=== PATIENT | female | born 1975 | race American Indian/Alaskan Native ===

== ENCOUNTER 2016-12-25 23:51 | Observation (INO) | payer MEDICAID ==
[2016-12-25 23:51] VITALS: BMI 29.5
[2016-12-26 00:02] VITALS: O2SAT 98
[2016-12-26] MEDS ORDERED: Sodium Chloride 0.9% 1,000 ML IV STA (00:43)
[2016-12-26 01:16] LABS: BASO # 0.1 K/uL (0.0-0.2); BASO % 0.8 % (0.0-2.0); EOS # 0.3 K/uL (0.0-0.7); EOS % 4.1 % (0.0-4.0); HEMATOCRIT 32.3 % (34.0-47.0); LYMPH # 1.8 K/uL (1.0-4.3); LYMPH % 24.9 % (20.0-40.0); MEAN CELL VOLUME 85.4 fl (81.0-99.0); MEAN CORPUSCULAR HEMOGLOBIN 28.1 pg (27.0-31.0); MEAN CORPUSCULAR HGB CONC 32.9 g/dL (33.0-37.0); MEAN PLATELET VOLUME 8.1 fl (7.2-11.7); MONO # 0.6 K/uL (0.0-0.8); MONO % 8.2 % (0.0-10.0); NEUT # 4.6 K/uL (1.8-7.0); RED CELL DISTRIBUTION WIDTH 14.5 % (11.5-14.5); WHITE BLOOD COUNT 7.4 K/uL (4.8-10.8)
[2016-12-26 01:31] LABS: BLOOD UREA NITROGEN 14 mg/dl (7-17); CALCIUM 9.4 mg/dL (8.4-10.2); CARBON DIOXIDE 23 mmol/L (22-30); CHLORIDE 108 mmol/L (98-107); GFR AFRICAN-AMERICAN > 60; GLUCOSE,RANDOM 101 mg/dL (65-105); POTASSIUM 3.9 MMOL/L (3.6-5.0); SODIUM 142 mmol/l (132-148)
--- NOTE | 2016-12-26 01:38 | ED PDOC ---
HPI: General Adult Time Seen by Provider: 12/26/16 00:35 Chief Complaint (Nursing): Flu-like Symptoms Chief Complaint (Provider): body aches, chills, weakness, productive cough History Per: Patient History/Exam Limitations: no limitations Onset/Duration Of Symptoms: Days Have you had recent travel within the past 21 days to any of the following countries: [place], [place], [place] or [place]?: No Current Symptoms Are (Timing): Still Present Additional Complaint(s): 41yo female with PMHx including fibromyalgia presents to the ED with c/o productive cough, body aches, chills, weakness x 3 days. Patient reports being unable to take meds. Denies fever today, but had fever at home. No sick contacts or recent travel. Past Medical History Reviewed: Historical Data, Nursing Documentation, Vital Signs Vital Signs: Last Vital Signs Temp 97.9 F 12/26/16 03:29 Pulse 79 12/26/16 03:29 Resp 17 12/26/16 03:29 BP 128/82 12/26/16 03:29 Pulse Ox 98 12/26/16 03:59 - Medical History PMH: Asthma, Back Problems, Fibromyalgia Denies: Atrial Fibrillation, CAD, Chronic Kidney Disease - Surgical History Surgical History: (x 3) - Family History Family History: States: No Known Family Hx - Immunization History Hx Tetanus Toxoid Vaccination: No Hx Influenza Vaccination: No Hx Pneumococcal Vaccination: No - Home Medications Home Medications: Ambulatory Orders Medication Instructions Recorded Albuterol 0.083% [Albuterol 3 ml IH Q4 PRN 09/20/15 Sulfate 3 Ml] Fluticasone Nasal [Flonase] 2 spr NS DAILY 09/20/15 Gabapentin [Neurontin] 300 mg PO TID 09/20/15 Hydroxychloroquine Sulfate 200 mg PO BID 09/20/15 [Plaquenil] Meloxicam [Mobic] 15 mg PO DAILY 09/20/15 Methocarbamol [Robaxin] 500 mg PO TID #20 tab 10/19/15 oxyCODONE/Acetaminophen [Percocet 1 ea PO Q6H PRN #8 tab 07/28/16 5/325 mg Tab] - Allergies Allergies/Adverse Reactions: Allergies Allergy/AdvReac Type Severity Reaction Status Date / Time cat dander Allergy ITCHING Verified 12/25/16 23:59 Review of Systems ROS Statement: Except As Marked, All Systems Reviewed And Found Negative Constitutional: Positive for: Chills, Weakness, Other (body aches, no sick contacts or recent travel ). Negative for: Fever Respiratory: Positive for: Cough Physical Exam - Reviewed Nursing Documentation Reviewed: Yes Vital Signs Reviewed: Yes - Physical Exam Appears: Positive for: Well, No Acute Distress (tired appearing ) Head Exam: Positive for: ATRAUMATIC, NORMAL INSPECTION, NORMOCEPHALIC Skin: Positive for: Warm, Dry, Pallor Eye Exam: Positive for: Normal appearance, EOMI, PERRL ENT: Positive for: Normal ENT Inspection Neck: Positive for: Normal, Painless ROM, Supple Cardiovascular/Chest: Positive for: Regular Rate, Rhythm. Negative for: Murmur , Tachycardia Respiratory: Positive for: Normal Breath Sounds. Negative for: Wheezing, Respiratory Distress Gastrointestinal/Abdominal: Positive for: Normal Exam, Bowel Sounds, Soft. Negative for: Tenderness Back: Positive for: Normal Inspection. Negative for: L CVA Tenderness, R CVA Tenderness Extremity: Positive for: Normal ROM. Negative for: Deformity, Swelling Neurologic/Psych: Positive for: Alert, Oriented. Negative for: Motor/Sensory Deficits - Laboratory Results Result Diagrams: 12/26/16 01:00 12/26/16 01:00 - ECG O2 Sat by Pulse Oximetry: 98 Pulse Ox Interpretation: Normal (RA) Medical Decision Making Medical Decision Makin: Impression: URI vs. influenza vs. influenza-like illness Plan: Labs IVF, Reglan 10mg IVP, Toradol 15mg IVP, Ultram 50mg PO CXR reassess 0555: Patient feeling better and will d/c at this time. Scribe Attestation: Documented by Leydi Duran acting as a scribe for Brad Crump MD. Provider Scribe Attestation: All medical record entries made by the Scribe were at my direction and personally dictated by me. I have reviewed the chart and agree that the record accurately reflects my personal performance of the history, physical exam, medical decision making, and the department course for this patient. I have also personally directed, reviewed, and agree with the discharge instructions and disposition. ED OBSERVATION Date of observation admission: 12/26/16 Time of observation admission: 03:58 - Observation admission statement Patient is being placed in observation because:: flu-like illness - Goals of Observation Goals of observation are:: pending discharge in AM Disposition - Clinical Impression Clinical Impression: Influenza-like symptoms, Upper respiratory infection - Patient ED Disposition Is Patient to be Admitted: No - Disposition Disposition: Routine/Home Disposition Time: 05:55 Condition: IMPROVED
[2016-12-26 03:29] VITALS: BP 128/82; PULSE 79; RESP 17; TEMP 97.9
[2016-12-26 03:37] LABS: RBC URINE 4 /hpf (0-3); URINE BACTERIA RARE (<OCC); URINE BILIRUBIN NEGATIVE (NEGATIVE); URINE BLOOD NEGATIVE (NEGATIVE); URINE COLOR YELLOW (YELLOW); URINE GLUCOSE (UA) NEG (Normal); URINE KETONE NEGATIVE (NEGATIVE); URINE LEUKOCYTE ESTERASE NEG Leu/uL (Negative); URINE PROTEIN 30 mg/dL (NEGATIVE); URINE UROBILINOGEN 0.2-1.0 mg/dL (0.2-1.0); WBC URINE 1 /hpf (0-5)
--- NOTE | 2016-12-26 13:38 | RAD ---
HISTORY: r/o pna COMPARISON: Comparison chest dated 08/21/2010 FINDINGS: LUNGS: Poor inspiration with low lung volumes and mild crowded bronchovascular markings both lung bases PLEURA: No significant pleural effusion identified, no pneumothorax apparent. CARDIOVASCULAR: Normal. OSSEOUS STRUCTURES: No significant abnormalities. VISUALIZED UPPER ABDOMEN: Normal. OTHER FINDINGS: None. IMPRESSION: Poor inspiration with low lung volumes with mild crowded bronchovascular markings both lung bases
== END 2016-12-26 05:47 | disposition home or self-care (01) ==
LOC: H.ER 23:51 → H.EROBSV 12-26 03:58
PROVIDERS: ADMIT Emergency Medicine; ATTEND Emergency Medicine
DX: J06.9 Acute upper respiratory infection, unspecified (principal); J45.909 Unspecified asthma, uncomplicated; M79.7 Fibromyalgia; Z79.899 Other long term (current) drug therapy

== ENCOUNTER 2018-01-07 21:34 | Emergency (ER) | payer MEDICAID ==
[2018-01-07 21:35] VITALS: BMI 29.5
[2018-01-07 21:43] VITALS: O2SAT 100
[2018-01-07] MEDS ORDERED: DiphenhydrAMINE 50 mg/ml Inj IVP STA (22:19)
[2018-01-07] MEDS ORDERED: Sodium Chloride 0.9% 1,000 ML IV STA (22:20)
[2018-01-07] MEDS ORDERED: Promethazine 25 MG in Sodium Chloride 0.9% 50 ML IV STA (22:23)
--- NOTE | 2018-01-07 22:45 | ED PDOC ---
HPI: General Adult Time Seen by Provider: 01/07/18 21:48 Chief Complaint (Nursing): Abdominal Pain Chief Complaint (Provider): Fever, cough, abdominal pain History Per: Patient History/Exam Limitations: no limitations Onset/Duration Of Symptoms: Days (x2 weeks) Current Symptoms Are (Timing): Still Present Additional Complaint(s): Leana Matamoros is a 42 year old female, with a past medical history of lupus and asthma, who presents to the emergency department complaining of non productive cough onset for x2 weeks associated with chest tightness, fever, chills and nausea onset for x2 days. Patient reports x1 week ago she developed some left flank pain that radiates to her LLQ. She is also complaining of diffused body aches, and muscle stiffness associated with migraine headache. 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 She denies any rhinorrhea, urinary symptoms and vomiting. No further medical complaints. PMD: Dr. De Los Santos Past Medical History Reviewed: Historical Data, Nursing Documentation, Vital Signs Vital Signs: Last Vital Signs Temp 98.3 F 01/08/18 04:39 Pulse 74 01/08/18 04:39 Resp 18 01/08/18 04:39 BP 130/84 01/08/18 04:39 Pulse Ox 100 01/08/18 04:52 - Medical History PMH: Asthma, Back Problems, Fibromyalgia Denies: Atrial Fibrillation, CAD, Chronic Kidney Disease Other PMH: Lupus - Surgical History Surgical History: (x 3) - Family History Family History: States: Hypertension - Social History Current smoker - smoking cessation education provided: No - Immunization History Hx Tetanus Toxoid Vaccination: No Hx Influenza Vaccination: No Hx Pneumococcal Vaccination: No - Home Medications Home Medications: Ambulatory Orders Medication Instructions Recorded Albuterol 0.083% [Albuterol 3 ml IH Q4 PRN 09/20/15 Sulfate 3 Ml] Fluticasone Nasal [Flonase] 2 spr NS DAILY 09/20/15 Gabapentin [Neurontin] 300 mg PO TID 09/20/15 Hydroxychloroquine Sulfate 200 mg PO BID 09/20/15 [Plaquenil] Meloxicam [Mobic] 15 mg PO DAILY 09/20/15 Methocarbamol [Robaxin] 500 mg PO TID #20 tab 10/19/15 oxyCODONE/Acetaminophen [Percocet 1 ea PO Q6H PRN #8 tab 07/28/16 5/325 mg Tab] Azithromycin [Z-Osito] 250 mg PO DAILY #6 tab 01/08/18 Ibuprofen [Motrin Tab] 600 mg PO Q6 #30 tab 01/08/18 Acetaminophen [Acetaminophen Extra 2 tab PO Q6 PRN #24 tablet 01/10/18 Strength] Ibuprofen [Motrin] 600 mg PO Q8 PRN #21 tab 01/10/18 Oseltamivir [Tamiflu] 75 mg PO BID #9 cap 01/10/18 - Allergies Allergies/Adverse Reactions: Allergies Allergy/AdvReac Type Severity Reaction Status Date / Time cat dander Allergy ITCHING Verified 12/25/16 23:59 Review of Systems ROS Statement: Except As Marked, All Systems Reviewed And Found Negative (and as per HPI) Constitutional: Positive for: Fever, Chills, Other (diffused body aches, muscle stiffness) ENT: Negative for: Nose Discharge (rhinorrhea) Cardiovascular: Positive for: Chest Pain (tightness) Respiratory: Positive for: Cough Gastrointestinal: Positive for: Nausea, Abdominal Pain (LLQ). Negative for: Vomiting Genitourinary Female: Negative for: Dysuria, Frequency, Incontinence, Hematuria Musculoskeletal: Positive for: Back Pain (left flank radiates to LLQ) Neurological: Positive for: Headache (migraine) Physical Exam - Reviewed Nursing Documentation Reviewed: Yes Vital Signs Reviewed: Yes - Physical Exam Appears: Positive for: In Acute Distress (mild painful ). Negative for: Well ( tired appearing, febrile) Head Exam: Positive for: ATRAUMATIC, NORMAL INSPECTION, NORMOCEPHALIC Skin: Positive for: Normal Color, Warm, Dry Eye Exam: Positive for: Normal appearance ENT: Positive for: Other (tacky mucous membrane). Negative for: Pharyngeal Erythema, Tonsillar Exudate, Tonsillar Swelling Neck: Positive for: Painless ROM Cardiovascular/Chest: Positive for: Regular Rate, Rhythm. Negative for: Murmur Respiratory: Positive for: Wheezing (diffused and expiratory ). Negative for: Accessory Muscle Use, Respiratory Distress Gastrointestinal/Abdominal: Positive for: Soft. Negative for: Tenderness, Mass , Distended, Guarding, Rebound Back: Positive for: L CVA Tenderness, R CVA Tenderness. Negative for: Vertebral Tenderness Extremity: Positive for: Normal ROM. Negative for: Deformity, Swelling Lymphatic: Negative for: Adenopathy Neurologic/Psych: Positive for: Alert, Oriented. Negative for: Motor/Sensory Deficits - Laboratory Results Result Diagrams: 01/07/18 23:18 01/07/18 23:18 - ECG O2 Sat by Pulse Oximetry: 100 (RA) Pulse Ox Interpretation: Normal Medical Decision Making Medical Decision Making: Initial Impression: Febrile illness. Differential includes but not limited to viral syndrome, pyelonephritis, sepsis, lupus exacerbation, PNA, influenza. Initial Plan: --VBG --Abd & Pelvis w/o PO or IV Contrast [CT] --B-Type natriuretic peptide --CMP --Urine --Urine dipstick --CBC w/ differential --PTT --PT --Chest two views (PA/LAT) [RAD] --Benadryl 25 mg IVP --Sodium Chloride 1,000 ml IV 100 mls/hr --Phenergan Inj 25 mg Sodium Chloride 0.9% 50 ml IV --Toradol 15 mg IVP --Tylenol 325mg tab 975 mg PO --Blood culture --Urine culture --Influenza A B --Urinalysis --Reevaluation Scribe Attestation: Documented by Jason Alonso, acting as a scribe for Nickie Morton MD Provider Scribe Attestation: All medical record entries made by the Scribe were at my direction and personally dictated by me. I have reviewed the chart and agree that the record accurately reflects my personal performance of the history, physical exam, medical decision making, and the department course for this patient. I have also personally directed, reviewed, and agree with the discharge instructions and disposition. Disposition - Clinical Impression Clinical Impression: Cough, Fever - Patient ED Disposition Is Patient to be Admitted: Transfer of Care - Disposition Referrals: Mary De Los Santos [Medical Doctor] - Disposition: Transfer of Care Disposition Time: 00:00 Condition: STABLE Prescriptions: Azithromycin [Z-Osito] 250 mg PO DAILY #6 tab Ibuprofen [Motrin Tab] 600 mg PO Q6 #30 tab Patient Signed Over To: Brad Crump Handoff Comments: Pending ER workup reassessment and final ER disposition
[2018-01-07 23:23] LABS: BASO # 0.1 K/uL (0.0-0.2); BASO % 1.3 % (0.0-2.0); EOS # 0.1 K/uL (0.0-0.7); EOS % 1.8 % (0.0-4.0); HEMOGLOBIN 9.1 g/dL (12.0-16.0); LYMPH # 0.8 K/uL (1.0-4.3); LYMPH % 17.1 % (20.0-40.0); MEAN CELL VOLUME 80.5 fl (81.0-99.0); MEAN CORPUSCULAR HEMOGLOBIN 26.2 pg (27.0-31.0); MEAN CORPUSCULAR HGB CONC 32.6 g/dL (33.0-37.0); MEAN PLATELET VOLUME 7.5 fl (7.2-11.7); MONO # 0.4 K/uL (0.0-0.8); MONO % 7.6 % (0.0-10.0); NEUT # 3.4 K/uL (1.8-7.0); NEUT % 72.2 % (50.0-75.0); RBC 3.47 Mil/uL (3.80-5.20); RED CELL DISTRIBUTION WIDTH 16.1 % (11.5-14.5); WHITE BLOOD COUNT 4.7 K/uL (4.8-10.8)
[2018-01-07 23:29] LABS: VENOUS BLOOD GAS BASE EXCESS -0.8 mmol/L (0.0-2.0); VENOUS BLOOD GAS PCO2 41 mmHg (40-60); VENOUS BLOOD GAS PO2 27 mm/Hg (30-55); VENOUS BLOOD PH 7.38 (7.32-7.43)
[2018-01-07 23:33] LABS: ALBUMIN 3.9 g/dL (3.5-5.0); ALT/SGPT 44 U/L (9-52); AST/SGOT 31 U/L (14-36); BLOOD UREA NITROGEN 10 mg/dl (7-17); GFR AFRICAN-AMERICAN > 60; GFR NON-AFRICAN AMERICAN > 60; INR 1.1 (0.9-1.2); PARTIAL THROMBOPLASTIN TIME 27.8 Seconds (25.6-37.1)
[2018-01-07 23:47] LABS: B-TYPE NATRIURETIC PEPTIDE 73.3 pg/ml (0-450)
[2018-01-08] MEDS ORDERED: DiphenhydrAMINE 50 mg/ml Inj ONE (00:03)
[2018-01-08 02:08] LABS: SQUAMOUS EPITHIAL 2 /hpf (0-5); URINE BACTERIA RARE (<OCC); URINE BILIRUBIN NEGATIVE (NEGATIVE); URINE BLOOD NEGATIVE (NEGATIVE); URINE CLARITY SLIGHTY-CLOUDY (Clear); URINE COLOR YELLOW (YELLOW); URINE GLUCOSE (UA) NEG (Normal); URINE LEUKOCYTE ESTERASE NEG Leu/uL (Negative); URINE PROTEIN NEGATIVE (NEGATIVE); URINE UROBILINOGEN 0.2-1.0 mg/dL (0.2-1.0)
--- NOTE | 2018-01-08 03:56 | CT ---
EXAM: CT Abdomen and Pelvis Without Intravenous Contrast CLINICAL HISTORY: 42 years old, female; Pain; Abdominal pain; Flank; Left; Additional info: Left flank pain TECHNIQUE: Axial computed tomography images of the abdomen and pelvis without intravenous contrast. All CT scans at this facility use one or more dose reduction techniques, viz.: automated exposure control; ma/kV adjustment per patient size (including targeted exams where dose is matched to indication; i.e. head); or iterative reconstruction technique. Coronal and sagittal reformatted images were created and reviewed. COMPARISON: US - PELVIS ULTRASOUND 2016-01-24 10:48 FINDINGS: Lung bases: Unremarkable. No mass. No consolidation. ABDOMEN: Liver: Unremarkable. Gallbladder and bile ducts: Unremarkable. No calcified stones. No ductal dilation. Pancreas: Unremarkable. No ductal dilation. Spleen: Unremarkable. No splenomegaly. Adrenals: Unremarkable. No mass. Kidneys and ureters: Unremarkable. No obstructing stones. No hydronephrosis. Stomach and bowel: Mildly distended gas filled loops of small bowel. No obstruction. No mucosal thickening. There is a moderate amount of stool mixed with gas throughout the colon. There is no wall thickening or pericolonic stranding to suggest colitis. Appendix: No findings to suggest acute appendicitis. Normal appendix. PELVIS: Bladder: Unremarkable. No stones. Reproductive: Unremarkable as visualized. ABDOMEN and PELVIS: Intraperitoneal space: Unremarkable. No free air. No significant fluid collection. Bones/joints: No acute fracture. No dislocation. Soft tissues: Unremarkable. Vasculature: Unremarkable. No abdominal aortic aneurysm. Lymph nodes: Unremarkable. No enlarged lymph nodes. IMPRESSION: No evidence of an acute intra-abdominal or pelvic abnormality. No nephrolithiasis or obstructive uropathy. No acute colitis.
--- NOTE | 2018-01-08 04:11 | ED PDOC ---
- Laboratory Results Result Diagrams: 01/07/18 23:18 01/07/18 23:18 - ECG O2 Sat by Pulse Oximetry: 100 (RA) Pulse Ox Interpretation: Normal Medical Decision Making Medical Decision Making: Time: Patient was signed out to me by Dr. Morton pending reevaluation. Time: 355 EXAM: CT Abdomen and Pelvis Without Intravenous Contrast FINDINGS: Lung bases: Unremarkable. No mass. No consolidation. ABDOMEN: Liver: Unremarkable. Gallbladder and bile ducts: Unremarkable. No calcified stones. No ductal dilation. Pancreas: Unremarkable. No ductal dilation. Spleen: Unremarkable. No splenomegaly. Adrenals: Unremarkable. No mass. Kidneys and ureters: Unremarkable. No obstructing stones. No hydronephrosis. Stomach and bowel: Mildly distended gas filled loops of small bowel. No obstruction. No mucosal thickening. There is a moderate amount of stool mixed with gas throughout the colon. There is no wall thickening or pericolonic stranding to suggest colitis. Appendix: No findings to suggest acute appendicitis. Normal appendix. PELVIS: Bladder: Unremarkable. No stones. Reproductive: Unremarkable as visualized. ABDOMEN and PELVIS: Intraperitoneal space: Unremarkable. No free air. No significant fluid collection. Bones/joints: No acute fracture. No dislocation. Soft tissues: Unremarkable. Vasculature: Unremarkable. No abdominal aortic aneurysm. Lymph nodes: Unremarkable. No enlarged lymph nodes. IMPRESSION: No evidence of an acute intra-abdominal or pelvic abnormality. No nephrolithiasis or obstructive uropathy. No acute colitis. Patients vital signs improved, patient feeling better, advised to followup with PMD in 1 - 2 days. Will prescribe azithromycin for possible bacterial infection given patient is on plaquenil. Return precautions given. Patient well appearing, ambulatory, tolerating PO upon discharge. Scribe Attestation: Documented by Petar Fajardo, acting as a scribe for Brad Crump MD Provider Scribe Attestation: All medical record entries made by the Scribe were at my direction and personally dictated by me. I have reviewed the chart and agree that the record accurately reflects my personal performance of the history, physical exam, medical decision making, and the department course for this patient. I have also personally directed, reviewed, and agree with the discharge instructions and disposition. Disposition - Clinical Impression Clinical Impression: Cough, Fever - POA Present On Arrival: None - Disposition Referrals: Mary De Los Santos [Medical Doctor] - Disposition: Routine/Home Disposition Time: 04:00 Condition: IMPROVED Prescriptions: Azithromycin [Z-Osito] 250 mg PO DAILY #6 tab Ibuprofen [Motrin Tab] 600 mg PO Q6 #30 tab Instructions: Cough in Adults, Fever, Adult (DC) Forms: [facility] (Danish)
[2018-01-08 04:39] VITALS: BP 130/84; PULSE 74; RESP 18; TEMP 98.3
--- NOTE | 2018-01-08 10:32 | RAD ---
HISTORY: COUGH FEVER COMPARISON: 12/26/2016 TECHNIQUE: Chest PA and lateral FINDINGS: LUNGS: No active pulmonary disease. PLEURA: No significant pleural effusion identified. No pneumothorax apparent. CARDIOVASCULAR: Normal. OSSEOUS STRUCTURES: No significant abnormalities. VISUALIZED UPPER ABDOMEN: Normal. OTHER FINDINGS: None. IMPRESSION: No active disease.
== END 2018-01-08 04:45 | disposition home or self-care (01) ==
LOC: SUPCPDRO 21:34 → H.ER 21:34
DX: R50.9 Fever, unspecified (principal); R05 Cough; M32.9 Systemic lupus erythematosus, unspecified; M79.7 Fibromyalgia
CPT/HCPCS: 71046; 74176; 80053; 81003; 81025; 82803; 83880; 85025; 85610; 85730; 87040; 87086; 87804; 96374; 96375; 99282; J1200; J1885; J2550; J7040

== ENCOUNTER 2018-01-10 12:01 | Emergency (ER) | payer MEDICAID ==
[2018-01-10 12:04] VITALS: BMI 30.5
[2018-01-10] MEDS ORDERED: Sodium Chloride 0.9% 1,000 ML IV STA ×2 (12:39→15:37)
--- NOTE | 2018-01-10 12:44 | ED PDOC ---
HPI: General Adult Time Seen by Provider: 01/10/18 12:41 Chief Complaint (Nursing): Fever Chief Complaint (Provider): fever History Per: Patient (42 y/o female h/o LUPUS on plaquenil here with ongoing fever/chills/cough x 5 days. Seen 4 days prior in ED and written rx for zithromax for respiratory illness. Notes persistent fevers/chills with bilateral leg pain.) Past Medical History Reviewed: Historical Data, Nursing Documentation, Vital Signs Vital Signs: Last Vital Signs Temp 99.9 F H 01/10/18 14:31 Pulse 106 H 01/10/18 12:04 Resp 20 01/10/18 12:04 BP 133/86 01/10/18 12:04 Pulse Ox 100 01/10/18 12:44 - Medical History PMH: Asthma, Back Problems, Fibromyalgia Denies: Atrial Fibrillation, CAD, Chronic Kidney Disease - Surgical History Surgical History: (x 3) - Family History Family History: States: Unknown Family Hx, Hypertension - Immunization History Hx Tetanus Toxoid Vaccination: No Hx Influenza Vaccination: No Hx Pneumococcal Vaccination: No - Home Medications Home Medications: Ambulatory Orders Medication Instructions Recorded Albuterol 0.083% [Albuterol 3 ml IH Q4 PRN 09/20/15 Sulfate 3 Ml] Fluticasone Nasal [Flonase] 2 spr NS DAILY 09/20/15 Gabapentin [Neurontin] 300 mg PO TID 09/20/15 Hydroxychloroquine Sulfate 200 mg PO BID 09/20/15 [Plaquenil] Meloxicam [Mobic] 15 mg PO DAILY 09/20/15 Methocarbamol [Robaxin] 500 mg PO TID #20 tab 10/19/15 oxyCODONE/Acetaminophen [Percocet 1 ea PO Q6H PRN #8 tab 07/28/16 5/325 mg Tab] Azithromycin [Z-Osito] 250 mg PO DAILY #6 tab 01/08/18 Ibuprofen [Motrin Tab] 600 mg PO Q6 #30 tab 01/08/18 Acetaminophen [Acetaminophen Extra 2 tab PO Q6 PRN #24 tablet 01/10/18 Strength] Ibuprofen [Motrin] 600 mg PO Q8 PRN #21 tab 01/10/18 Oseltamivir [Tamiflu] 75 mg PO BID #9 cap 01/10/18 - Allergies Allergies/Adverse Reactions: Allergies Allergy/AdvReac Type Severity Reaction Status Date / Time cat dander Allergy ITCHING Verified 12/25/16 23:59 Review of Systems ROS Statement: Except As Marked, All Systems Reviewed And Found Negative Physical Exam - Reviewed Nursing Documentation Reviewed: Yes Vital Signs Reviewed: Yes - Physical Exam Appears: Positive for: Well, Non-toxic, No Acute Distress Head Exam: Positive for: ATRAUMATIC, NORMAL INSPECTION, NORMOCEPHALIC Skin: Positive for: Normal Color, Warm, DRY Eye Exam: Positive for: EOMI, Normal appearance, PERRL ENT: Positive for: Normal ENT Inspection Neck: Positive for: Normal, Painless ROM Cardiovascular/Chest: Positive for: Regular Rate, Rhythm Respiratory: Positive for: CNT, Normal Breath Sounds Gastrointestinal/Abdominal: Positive for: Normal Exam, Soft Back: Positive for: Normal Inspection Extremity: Positive for: Normal ROM Neurologic/Psych: Positive for: Alert, Oriented - Laboratory Results Result Diagrams: 01/10/18 13:12 01/10/18 13:12 - ECG O2 Sat by Pulse Oximetry: 100 - Progress ED Course And Treament: NS 1 liter wide open tylenol 975 mg x 1 dose cxr: nad duplex right leg: neg BC x 2 sent; urine cx sent Will advise f/u tomorrow with rheumatology. 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 Prescriptions: Acetaminophen [Acetaminophen Extra Strength] 2 tab PO Q6 PRN #24 tablet PRN Reason: Fever >100.4 F Ibuprofen [Motrin] 600 mg PO Q8 PRN #21 tab PRN Reason: Fever >100.4 F Oseltamivir [Tamiflu] 75 mg PO BID #9 cap Instructions: Flu, Adult (DC) Forms: [facility] (Kinyarwanda)
--- NOTE | 2018-01-10 13:26 | RAD ---
HISTORY: fever COMPARISON: No prior. TECHNIQUE: Chest PA and lateral FINDINGS: LUNGS: No active pulmonary disease. PLEURA: No significant pleural effusion identified. No pneumothorax apparent. CARDIOVASCULAR: Normal. OSSEOUS STRUCTURES: No significant abnormalities. VISUALIZED UPPER ABDOMEN: Normal. OTHER FINDINGS: None. IMPRESSION: No active disease.
[2018-01-10 13:32] LABS: BASO % 0.4 % (0.0-2.0); EOS # 0.2 K/uL (0.0-0.7); EOS % 3.3 % (0.0-4.0); HEMOGLOBIN 9.9 g/dL (12.0-16.0); LYMPH # 0.4 K/uL (1.0-4.3); LYMPH % 5.9 % (20.0-40.0); MEAN CELL VOLUME 79.5 fl (81.0-99.0); MEAN CORPUSCULAR HEMOGLOBIN 26.3 pg (27.0-31.0); MEAN CORPUSCULAR HGB CONC 33.1 g/dL (33.0-37.0); MEAN PLATELET VOLUME 7.4 fl (7.2-11.7); MONO # 0.2 K/uL (0.0-0.8); MONO % 4.1 % (0.0-10.0); NEUT # 5.1 K/uL (1.8-7.0); NEUT % 86.3 % (50.0-75.0); PLATELET COUNT 209 K/uL (130-400); RBC 3.76 Mil/uL (3.80-5.20); RED CELL DISTRIBUTION WIDTH 16.2 % (11.5-14.5); WHITE BLOOD COUNT 5.9 K/uL (4.8-10.8)
[2018-01-10 13:32] LABS: VENOUS BLOOD GAS BASE EXCESS -4.7 mmol/L (0.0-2.0); VENOUS BLOOD GAS PCO2 37 mmHg (40-60); VENOUS BLOOD GAS PO2 31 mm/Hg (30-55); VENOUS BLOOD PH 7.35 (7.32-7.43)
[2018-01-10 13:56] LABS: ALB/GLOB RATIO 0.9 (1.0-2.1); ALBUMIN 4.1 g/dL (3.5-5.0); ALT/SGPT 113 U/L (9-52); AST/SGOT 127 U/L (14-36); BLOOD UREA NITROGEN 8 mg/dl (7-17); CALCIUM 9.1 mg/dL (8.4-10.2); GFR AFRICAN-AMERICAN > 60; GFR NON-AFRICAN AMERICAN > 60
[2018-01-10 14:27] LABS: BANDS 4 % (0-2); EOSINOPHIL 4 % (0-7); LYMPHOCYTE 10 % (20-50); MONOCYTE 8 % (0-10); NEUTROPHIL 74 % (42-75); PLATELET ESTIMATE NORMAL (NORMAL); TOTAL CELLS COUNTED 100
[2018-01-10 14:28] LABS: ANISOCYTOSIS MODERATE; HYPOCHROMIC SLIGHT; MICROCYTOSIS SLIGHT; POIKILOCYTOSIS SLIGHT; TARGET CELLS SLIGHT
[2018-01-10 16:17] LABS: SQUAMOUS EPITHIAL 4 /hpf (0-5); URINE AMORPHOUS SEDIMENT RARE /ul (<OCC); URINE BACTERIA RARE (<OCC); URINE BILIRUBIN NEGATIVE (NEGATIVE); URINE BLOOD NEGATIVE (NEGATIVE); URINE CLARITY CLOUDY (Clear); URINE COLOR YELLOW (YELLOW); URINE GLUCOSE (UA) NEG (Normal); URINE LEUKOCYTE ESTERASE NEG Leu/uL (Negative); URINE PROTEIN 30 mg/dL (NEGATIVE); URINE UROBILINOGEN 0.2-1.0 mg/dL (0.2-1.0)
--- NOTE | 2018-01-10 17:08 | US ---
EXAM: Venous Doppler unilateral right INDICATIONS: Pain. Evaluate for deep venous thrombosis. TECHNIQUE: Duplex venous evaluation of the right lower extremity was performed utilizing graded compression, color Doppler and spectral Doppler interrogation. COMPARISON: None available. FINDINGS: There is normal morphology, compressibility, Doppler flow, and augmentation of the right common femoral, femoral, and popliteal veins. Visualized portions of the posterior tibial vein are unremarkable. IMPRESSION: No evidence of deep venous thrombosis in the right femoropopliteal system.
[2018-01-10 18:15] VITALS: BP 129/78; PULSE 87; RESP 18; TEMP 98.9; O2SAT 99
== END 2018-01-10 18:15 | disposition home or self-care (01) ==
LOC: H.ER 12:01
DX: J11.1 Influenza due to unidentified influenza virus with other respiratory manifestations (principal); R50.9 Fever, unspecified; J45.909 Unspecified asthma, uncomplicated; M32.9 Systemic lupus erythematosus, unspecified; M79.7 Fibromyalgia; B96.89 Other specified bacterial agents as the cause of diseases classified elsewhere
CPT/HCPCS: 71046; 80053; 81003; 82803; 85025; 87040; 87070; 87086; 87430; 87804; 93971; 99283; J7040

== ENCOUNTER 2018-01-22 15:20 | Emergency (ER) | payer MEDICAID ==
[2018-01-22 15:20] VITALS: BMI 30.5
[2018-01-22 15:35] VITALS: BP 126/82; PULSE 82; RESP 16; TEMP 98.9; O2SAT 100
[2018-01-22] MEDS ORDERED: Sodium Chloride 0.9% 1,000 ML IV STA (16:35)
--- NOTE | 2018-01-22 16:57 | ED PDOC ---
Lower Extremity Pain/Injury Time Seen by Provider: 01/22/18 15:58 Chief Complaint (Nursing): Fever Chief Complaint (Provider): Fever History Per: Patient History/Exam Limitations: no limitations Onset/Duration Of Symptoms: Days (x3 weeks), Intermittent Episodes (fever constanly comes and goes) Current Symptoms Are (Timing): Still Present Additional Complaint(s): 42 year old female, past medical history of fibromyalgia, Lupus and hypertension , presents to the emergency room at the suggestion of her PCP for fever associated with bilateral leg pain (right > left) and mild cough, onset 3 weeks intermittently. This is her fourth visit to the emergency department for similar symptoms, noting that she was prescribed Azithromycin and Tamiflu at her last visit without relief. She took Tylenol for her fever. Her Geriatric Physical Therapist gave her an injection that she could not remember the name of, but reports it did not help. The patient was also prescribed Diflucan for oral thrush but has not taken it yet. She states that her symptoms feel similar to a previous Lupus flare. Patient denies chest pain and shortness of breath. PMD: [facility] [place] Past Medical History Reviewed: Historical Data, Nursing Documentation, Vital Signs Vital Signs: Last Vital Signs Temp 98.9 F 01/22/18 15:32 Pulse 82 01/22/18 15:32 Resp 16 01/22/18 15:32 BP 126/82 01/22/18 15:32 Pulse Ox 100 01/22/18 15:32 - Medical History PMH: Asthma, Back Problems, Fibromyalgia, HTN Denies: Atrial Fibrillation, CAD, Chronic Kidney Disease Other PMH: lupus - Surgical History Surgical History: (x 3) Other surgeries: Right shoulder surgery - Family History Family History: States: Unknown Family Hx, Hypertension - Social History Current smoker - smoking cessation education provided: No Alcohol: None Drugs: Denies - Immunization History Hx Tetanus Toxoid Vaccination: No Hx Influenza Vaccination: No Hx Pneumococcal Vaccination: No - Home Medications Home Medications: Ambulatory Orders Medication Instructions Recorded Albuterol 0.083% [Albuterol 3 ml IH Q4 PRN 09/20/15 Sulfate 3 Ml] Fluticasone Nasal [Flonase] 2 spr NS DAILY 09/20/15 Gabapentin [Neurontin] 300 mg PO TID 09/20/15 Hydroxychloroquine Sulfate 200 mg PO BID 09/20/15 [Plaquenil] Meloxicam [Mobic] 15 mg PO DAILY 09/20/15 Methocarbamol [Robaxin] 500 mg PO TID #20 tab 10/19/15 oxyCODONE/Acetaminophen [Percocet 1 ea PO Q6H PRN #8 tab 07/28/16 5/325 mg Tab] Azithromycin [Z-Osito] 250 mg PO DAILY #6 tab 01/08/18 Ibuprofen [Motrin Tab] 600 mg PO Q6 #30 tab 01/08/18 Acetaminophen [Acetaminophen Extra 2 tab PO Q6 PRN #24 tablet 01/10/18 Strength] Ibuprofen [Motrin] 600 mg PO Q8 PRN #21 tab 01/10/18 Oseltamivir [Tamiflu] 75 mg PO BID #9 cap 01/10/18 Methylprednisolone [Medrol Dose 4 mg PO ASDIR #21 mg 01/22/18 Pack (21 tabs)] - Allergies Allergies/Adverse Reactions: Allergies Allergy/AdvReac Type Severity Reaction Status Date / Time cat dander Allergy ITCHING Verified 01/22/18 15:31 Review of Systems ROS Statement: Except As Marked, All Systems Reviewed And Found Negative Constitutional: Positive for: Fever ENT: Negative for: Throat Pain Cardiovascular: Negative for: Chest Pain Respiratory: Positive for: Cough (mild). Negative for: Shortness of Breath Musculoskeletal: Positive for: Leg Pain (right > left) Physical Exam - Reviewed Nursing Documentation Reviewed: Yes Vital Signs Reviewed: Yes - Physical Exam Appears: Positive for: No Acute Distress Head Exam: Positive for: ATRAUMATIC, NORMAL INSPECTION, NORMOCEPHALIC Skin: Positive for: Normal Color, Warm, Dry Eye Exam: Positive for: EOMI, Normal appearance, PERRL ENT: Positive for: Normal ENT Inspection Neck: Positive for: Normal, Painless ROM Cardiovascular/Chest: Positive for: Regular Rate, Rhythm. Negative for: Murmur Respiratory: Positive for: Normal Breath Sounds. Negative for: Accessory Muscle Use, Wheezing Gastrointestinal/Abdominal: Positive for: Normal Exam, Soft Extremity: Positive for: Normal ROM (lower extremities). Negative for: Pedal Edema, Calf Tenderness, Deformity (lower extremities) Neurologic/Psych: Positive for: Alert, Oriented - Laboratory Results Result Diagrams: 01/22/18 16:51 01/22/18 16:51 - ECG O2 Sat by Pulse Oximetry: 100 (RA) Pulse Ox Interpretation: Normal - Progress Re-evaluation Time: 18:30 Condition: Re-examined, Improved Medical Decision Making Medical Decision Making: Initial Impression: Fever and arthralgia Differential Diagnosis: Lupus flare; infectious process R/O sepsis Time: 1632 Plan: --VBG --Blood culture --Urine culture --Urinalysis --SOLU-Medrol 125 mg IVP --Sodium Chloride 0.9% 1,000 ml IV --Glucose, POC Routine --CMP --CBC Time: 1633 --Provider reviewed chart from 01/10/18, noting a blood culture was performed with negative results. --PTT and PT additionally ordered. Scribe Attestation: Documented by Jyoti Ho, acting as a scribe for Amadou Ryan MD Provider Scribe Attestation: All medical entries made by the Scribe were at my direction and personally dictated by me. I have reviewed the chart and agree that the record accurately reflects my personal performance of the history, physical exam, medical decision making, and the department course for this patient. I have also personally directed, reviewed, and agree with the discharge instructions and disposition. Disposition - Clinical Impression Clinical Impression: Fever in adult, Lupus - Patient ED Disposition Is Patient to be Admitted: No Doctor Will See Patient In The: Office Counseled Patient/Family Regarding: Studies Performed, Diagnosis, Need For Followup - Disposition Referrals: Fernando Pinto MD [Medical Doctor] - Disposition: Routine/Home Disposition Time: 18:48 Condition: GOOD Additional Instructions: Take your medications as instructed. Return for worsening in 24 hr. You will be called with abnormal results in 2-3 days. Prescriptions: Methylprednisolone [Medrol Dose Pack (21 tabs)] 4 mg PO ASDIR #21 mg Instructions: Lupus, Fever, Adult (DC)
[2018-01-22 17:06] LABS: VENOUS BLOOD GAS BASE EXCESS -0.9 mmol/L (0.0-2.0); VENOUS BLOOD GAS PCO2 36 mmHg (40-60); VENOUS BLOOD GAS PO2 56 mm/Hg (30-55); VENOUS BLOOD PH 7.42 (7.32-7.43)
[2018-01-22 17:08] LABS: BASO # 0.1 K/uL (0.0-0.2); EOS # 0.2 K/uL (0.0-0.7); EOS % 3.8 % (0.0-4.0); HEMOGLOBIN 8.6 g/dL (12.0-16.0); LYMPH # 0.8 K/uL (1.0-4.3); LYMPH % 12.8 % (20.0-40.0); MEAN CELL VOLUME 80.1 fl (81.0-99.0); MEAN CORPUSCULAR HEMOGLOBIN 26.2 pg (27.0-31.0); MEAN CORPUSCULAR HGB CONC 32.8 g/dL (33.0-37.0); MEAN PLATELET VOLUME 7.5 fl (7.2-11.7); NEUT # 4.3 K/uL (1.8-7.0); NEUT % 67.4 % (50.0-75.0); RBC 3.28 Mil/uL (3.80-5.20); RED CELL DISTRIBUTION WIDTH 17.1 % (11.5-14.5); WHITE BLOOD COUNT 6.3 K/uL (4.8-10.8)
[2018-01-22 17:29] LABS: ALBUMIN 3.7 g/dL (3.5-5.0); AST/SGOT 51 U/L (14-36); BLOOD UREA NITROGEN 12 mg/dl (7-17); CALCIUM 9.5 mg/dL (8.4-10.2); GFR AFRICAN-AMERICAN > 60; GFR NON-AFRICAN AMERICAN > 60
[2018-01-22 17:31] LABS: ALT/SGPT 109 U/L (9-52)
[2018-01-22 18:19] LABS: PARTIAL THROMBOPLASTIN TIME 26.3 Seconds (25.6-37.1); PROTHROMBIN TIME 11.4 Seconds (9.8-13.1)
[2018-01-22 18:54] LABS: SQUAMOUS EPITHIAL 2 /hpf (0-5); URINE BILIRUBIN NEGATIVE (NEGATIVE); URINE BLOOD NEGATIVE (NEGATIVE); URINE CLARITY CLEAR (Clear); URINE COLOR YELLOW (YELLOW); URINE GLUCOSE (UA) NEG (Normal); URINE LEUKOCYTE ESTERASE NEG Leu/uL (Negative); URINE PROTEIN NEGATIVE (NEGATIVE); URINE UROBILINOGEN 0.2-1.0 mg/dL (0.2-1.0)
== END 2018-01-22 19:17 | disposition home or self-care (01) ==
LOC: H.ER 15:20
DX: R50.9 Fever, unspecified (principal); M32.9 Systemic lupus erythematosus, unspecified; M79.7 Fibromyalgia; I10 Essential (primary) hypertension; J45.909 Unspecified asthma, uncomplicated
CPT/HCPCS: 80053; 81003; 82803; 82948; 85025; 85610; 85730; 87086; 96374; 99283; J2930; J7040

== ENCOUNTER 2018-08-23 11:26 | Emergency (ER) | payer MEDICAID ==
[2018-08-23 11:26] VITALS: BMI 30.5
[2018-08-23 12:36] VITALS: TEMP 98.6
--- NOTE | 2018-08-23 13:48 | ED PDOC ---
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 [place] [employer] [place] correction down the stairs(approx 6 steps). Patient was able to get up and ambulate without assistance, however notes worsening right ankle pain. Patient reports she takes Tramadol and Gabapentin daily for chronic pain, last dose at 730AM. Denies head injury, LOC. No other complaints. Denies prior ankle injury/surgery. PMD: [facility] - Hip Description Of Injury: Tripped Past Medical History Reviewed: Historical Data, Nursing Documentation, Vital Signs Vital Signs: Last Vital Signs Temp 98.6 F 08/23/18 12:31 Pulse 84 08/23/18 12:31 Resp 17 08/23/18 12:31 BP 142/87 08/23/18 12:31 Pulse Ox 100 08/23/18 12:31 - Medical History PMH: Asthma, Back Problems, Fibromyalgia, HTN Other PMH: Lupus - Surgical History Surgical History: (x 3) - Family History Family History: States: Unknown Family Hx - Home Medications Home Medications: Ambulatory Orders Medication Instructions Recorded Albuterol 0.083% [Albuterol 3 ml IH Q4 PRN 09/20/15 Sulfate 3 Ml] Fluticasone Nasal [Flonase] 2 spr NS DAILY 09/20/15 Gabapentin [Neurontin] 300 mg PO TID 09/20/15 Hydroxychloroquine Sulfate 200 mg PO BID 09/20/15 [Plaquenil] Meloxicam [Mobic] 15 mg PO DAILY 09/20/15 Methocarbamol [Robaxin] 500 mg PO TID #20 tab 10/19/15 oxyCODONE/Acetaminophen [Percocet 1 ea PO Q6H PRN #8 tab 07/28/16 5/325 mg Tab] Azithromycin [Z-Osito] 250 mg PO DAILY #6 tab 01/08/18 RX: Ibuprofen [Motrin Tab] 600 mg PO Q6 #30 tab 01/08/18 Acetaminophen [Acetaminophen Extra 2 tab PO Q6 PRN #24 tablet 01/10/18 Strength] Ibuprofen [Motrin] 600 mg PO Q8 PRN #21 tab 01/10/18 Oseltamivir [Tamiflu] 75 mg PO BID #9 cap 01/10/18 Methylprednisolone [Medrol Dose 4 mg PO ASDIR #21 mg 01/22/18 Pack (21 tabs)] RX: Naproxen 500 mg PO BID PRN #20 tab 08/23/18 - Allergies Allergies/Adverse Reactions: Allergies Allergy/AdvReac Type Severity Reaction Status Date / Time cat dander Allergy ITCHING Verified 01/22/18 15:31 Review of Systems ROS Statement: Except As Marked, All Systems Reviewed And Found Negative Musculoskeletal: Positive for: Leg Pain (right), Other (right ankle pain) Physical Exam - Reviewed Nursing Documentation Reviewed: Yes Vital Signs Reviewed: Yes - Physical Exam Appears: Positive for: Well, Non-toxic, No Acute Distress Head Exam: Positive for: ATRAUMATIC, NORMOCEPHALIC Skin: Positive for: Normal Color, Warm, Dry Eye Exam: Positive for: Normal appearance ENT: Positive for: Other (Mucus membranes moist. Airway patent, (-) stridor. ) Neck: Positive for: Painless ROM, Supple Cardiovascular/Chest: Positive for: Regular Rate, Rhythm Respiratory: Positive for: Normal Breath Sounds Back: Negative for: Vertebral Tenderness Extremity: Positive for: Normal ROM (of right hip and knee. Decreased ROM of right ankle secondary to pain. ), Tenderness (diffuse to right ankle, most notable at lateral malleolus), Capillary Refill (intact), Other (Remainder of lower extremity nontender. Sensation intact throughout. ). Negative for: Pedal Edema, Calf Tenderness, Deformity, Swelling (ecchymosis, warmth, or erythema) Neurologic/Psych: Positive for: Alert, Oriented (x3), Cerebellar Tests (intact), Gait (steady in ED). Negative for: Motor/Sensory Deficits, Aphasia, Facial Droop - Laboratory Results Urine POC: Negative - ECG O2 Sat by Pulse Oximetry: 100 (RA) Pulse Ox Interpretation: Normal Medical Decision Making Medical Decision Makin Initial Impression: Acute ankle s/p fall Plan: -Toradol IM -Ankle XR 3 views -Re-evaluation -Upreg: negative 1450 XR reviewed Date of service: 08/23/2018 PROCEDURE: Right Ankle Radiographs. HISTORY: s/p fall, joint pain COMPARISON: None available. FINDINGS: BONES: Normal. No fracture. JOINTS: Normal. No osteoarthritis. Ankle mortise maintained. Talar dome intact SOFT TISSUES: Lateral soft tissue swelling without distal fibular abnormality. OTHER FINDINGS: None. IMPRESSION: Soft tissue swelling without acute articular or osseous abnormality. Tiburcio bandage ordered and applied by ED staff. NV intact after placement. RICE encouraged. Patient declined crutches. RICE encouraged. 1530 On re-evaluation, patient reports improvement of symptoms. On exam, patient remains AAOx3, in no acute distress. Vitals stable. Lab/Diagnostic results d/w the patient in great detail. Diagnosis of acute ankle pain/sprain s/p fall d/w the patient. Based on history, exam and diagnostic results, plan will be for outpatient follow up with PMD/ortho. Patient instructed to follow-up with pmd / referral provided / the clinic in 1- 2 days without fail. Advised to take medication as prescribed. Return to the emergency room at any time for any new or worsening symptoms. Patient states she fully agrees with and understands discharge instructions. States that she agrees with the plan and disposition. Verbalized and repeated discharge instructions and plan. I have given the patient opportunity to ask any additional questions. Disposition - Clinical Impression Clinical Impression: Ankle sprain, Ankle pain, right, Fall down stairs, Leg pain, right - Patient ED Disposition Is Patient to be Admitted: No Counseled Patient/Family Regarding: Studies Performed, Diagnosis, Need For Followup, Rx Given - Disposition Referrals: Ginger Martines MD [Staff Provider] - Daria Morin [Family Provider] - Disposition: Routine/Home Disposition Time: 15:30 Condition: IMPROVED Additional Instructions: REST, ICE, AND ELEVATE EXTREMITY. The emergency medical care you received today was directed at your acute symptoms. If you were prescribed any medication, please fill it and take as directed. It may take several days for your symptoms to resolve. Return to the Emergency Department if your symptoms worsen, do not improve, or if you have any other problems. Please contact your doctor in 2 days for re-evaluation and follow up / or call one of the physicians/clinics you have been referred to that are listed on the Patient Visit Information form that is included in your discharge packet. Bring any paperwork you were given at discharge with you along with any medications you are taking to your follow up visit. Our treatment cannot replace ongoing medical care by a primary care provider (PCP) outside of the emergency department. Prescriptions: RX: Naproxen 500 mg PO BID PRN #20 tab PRN Reason: Pain, Moderate (4-7) Instructions: Ankle Sprain, Muscle and Bone Pain (DC), How to Use an Elastic Bandage Forms: [employer] ([place]ian) Print Language: WALLISIAN - POA Present On Arrival: Falls Or Trauma
--- NOTE | 2018-08-23 14:40 | RAD ---
Date of service: 08/23/2018 PROCEDURE: Right Ankle Radiographs. HISTORY: s/p fall, joint pain COMPARISON: None available. FINDINGS: BONES: Normal. No fracture. JOINTS: Normal. No osteoarthritis. Ankle mortise maintained. Talar dome intact SOFT TISSUES: Lateral soft tissue swelling without distal fibular abnormality. OTHER FINDINGS: None. IMPRESSION: Soft tissue swelling without acute articular or osseous abnormality.
[2018-08-23 15:47] VITALS: BP 131/79; PULSE 74; RESP 16
[2018-08-23 16:48] VITALS: O2SAT 100
== END 2018-08-23 15:50 | disposition home or self-care (01) ==
LOC: H.ER 11:26
DX: S93.401A Sprain of unspecified ligament of right ankle, initial encounter (principal); M25.571 Pain in right ankle and joints of right foot; W10.9XXA Fall (on) (from) unspecified stairs and steps, initial encounter; Y92.522 Railway station as the place of occurrence of the external cause; J45.909 Unspecified asthma, uncomplicated; I10 Essential (primary) hypertension; M32.9 Systemic lupus erythematosus, unspecified; M79.7 Fibromyalgia; Z79.899 Other long term (current) drug therapy
CPT/HCPCS: 73610; 81025; 96372; 99283; J1885

== ENCOUNTER 2018-12-27 09:33 | Emergency (ER) | payer MEDICAID ==
[2018-12-27 09:34] VITALS: BMI 28.8
[2018-12-27 09:36] VITALS: TEMP 98.9; O2SAT 100
[2018-12-27 12:00] LABS: BASO # 0.1 K/uL (0.0-0.2); BASO % 1.3 % (0.0-2.0); EOS # 0.1 K/uL (0.0-0.7); EOS % 2.5 % (0.0-4.0); HEMOGLOBIN 8.2 g/dL (12.0-16.0); LYMPH # 1.3 K/uL (1.0-4.3); LYMPH % 21.7 % (20.0-40.0); MEAN CELL VOLUME 75.9 fl (81.0-99.0); MEAN CORPUSCULAR HEMOGLOBIN 24.4 pg (27.0-31.0); MEAN CORPUSCULAR HGB CONC 32.1 g/dL (33.0-37.0); MEAN PLATELET VOLUME 7.5 fl (7.2-11.7); MONO # 0.4 K/uL (0.0-0.8); MONO % 6.8 % (0.0-10.0); NEUT # 3.9 K/uL (1.8-7.0); NEUT % 67.7 % (50.0-75.0); NRBC % 0.1 % (0.0-0.0); RBC 3.37 Mil/uL (3.80-5.20); RED CELL DISTRIBUTION WIDTH 19.8 % (11.5-14.5); WHITE BLOOD COUNT 5.8 K/uL (4.8-10.8)
[2018-12-27 12:05] LABS: ALB/GLOB RATIO 1.1 (1.0-2.1); ALBUMIN 4.2 g/dL (3.5-5.0); ALT/SGPT 44 U/L (9-52); AST/SGOT 39 U/L (14-36); BLOOD UREA NITROGEN 13 mg/dl (7-17); CALCIUM 9.5 mg/dL (8.4-10.2); GFR NON-AFRICAN AMERICAN > 60
[2018-12-27 12:07] LABS: PROTHROMBIN TIME 11.7 Seconds (9.8-13.1)
[2018-12-27 12:10] LABS: SQUAMOUS EPITHIAL < 1 /hpf (0-5); URINE BACTERIA RARE (<OCC); URINE BILIRUBIN NEGATIVE (NEGATIVE); URINE BLOOD NEGATIVE (NEGATIVE); URINE CLARITY SLIGHTY-CLOUDY (Clear); URINE COLOR YELLOW (YELLOW); URINE GLUCOSE (UA) NEG (NEGATIVE); URINE LEUKOCYTE ESTERASE NEG Leu/uL (Negative); URINE PROTEIN NEGATIVE (NEGATIVE); URINE UROBILINOGEN 0.2-1.0 mg/dL (0.2-1.0)
[2018-12-27] MEDS ORDERED: Sodium Chloride 0.9% 1,000 ML IV STA (12:39)
[2018-12-27] MEDS ORDERED: Naproxen 500 MG TAB PO STA (12:39)
[2018-12-27] MEDS ORDERED: Naproxen 500 MG TAB PO ONE (12:51)
--- NOTE | 2018-12-27 14:22 | US ---
Date of service: 12/27/2018 HISTORY: abnormal vaginal bleeding COMPARISON: Pelvic ultrasonography 01/24/2016. TECHNIQUE: Transabdominal and transvaginal pelvic ultrasound was performed with longitudinal and transverse images submitted for interpretation. FINDINGS: UTERUS: Measures 12.0 x 5.9 x 5.3 cm. Uterus is normal in size with heterogeneous echotexture throughout the myometrium. There is a focal area of diminished echogenicity at the posterior corpus measuring 1.9 x 1.2 x 2.0 cm compatible with a small subserosal fibroid. An additional nearly identical hypoechoic lesion is seen at the midline fundus measuring 2.2 x 2.6 x 2.5 cm bridging both sub serosal and submucous spaces. ENDOMETRIUM: Measures 3.8 mm in diameter. Trace fluid is seen in the endometrial cavity potentially reflecting hemorrhage in this patient with history of spontaneous vaginal bleeding. CERVIX: There 1 or 2 small nabothian cysts seen related to the cervix with the cervix otherwise unremarkable. RIGHT OVARY: Measures 3.1 x 2.4 x 2.2 cm. No solid mass. Normal flow. A few follicles are seen scattered infrequently. LEFT OVARY: Measures to 4.7 x 3.7 x 2.6 cm. No solid mass. Normal flow. A simple cyst seen only on the transabdominal component of the exam measuring 2.7 x 2.0 x 2.0 cm potentially representing a dominant follicle. FREE FLUID: No significant free fluid noted. OTHER FINDINGS: None. IMPRESSION: 2.7 cm cyst left ovary may reflect dominant follicle. 2 uterine fibroids identified within an enlarged uterus with the uterus otherwise unremarkable. Trace fluid is seen within the endometrial cavity potentially reflecting hemorrhage given patient's clinical history of abnormal vaginal bleeding.
--- NOTE | 2018-12-27 14:29 | ED PDOC ---
HPI: Abdomen Time Seen by Provider: 12/27/18 10:30 Chief Complaint (Nursing): Abdominal Pain Chief Complaint (Provider): Vaginal Bleeding History Per: Patient History/Exam Limitations: no limitations Onset/Duration Of Symptoms: Days (x21) Current Symptoms Are (Timing): Still Present Quality Of Discomfort: Cramping Associated Symptoms: denies: Fever, Chills, Nausea, Vomiting, Diarrhea, Loss Of Appetite, Constipation, Urinary Symptoms Exacerbating Factors: denies: None Alleviating Factors: None Additional History Per: Patient Additional Complaint(s): 43 y/o female with a PMHx of Lupus presents to the ED for evaluation of abnormal vaginal bleeding, onset three weeks ago. Patient states symptoms initially started with her regular menses that she had for one week, stopped and started again prompting concern and today's visit. Patient additionally notes of developing lightheadedness, fatigue and generalized weakness for the past week. Patient is A2 saturating about four to five overnight pads a day with clots. Otherwise, patient denies shortness of breath, chest pain, palpitations, fever, vaginal itchiness or irritation and dysuria. Of note, patient states she is sexually active with one partner. PMD: No provider Abnormal Vaginal Bleeding: Yes Last Menstral Period: 12/02/2018 : 5 Para: 3 Miscarriage: 2 Past Medical History Reviewed: Historical Data, Nursing Documentation, Vital Signs Vital Signs: Last Vital Signs Temp 98.9 F 12/27/18 09:34 Pulse 84 12/27/18 09:34 Resp 17 12/27/18 09:34 BP 137/87 12/27/18 09:34 Pulse Ox 100 12/27/18 09:34 - Medical History PMH: Asthma, Back Problems, Fibromyalgia, HTN Denies: Atrial Fibrillation, CAD, Chronic Kidney Disease Other PMH: Lupus - Surgical History Surgical History: (x 3) - Family History Family History: States: Hypertension - Immunization History Hx Tetanus Toxoid Vaccination: No Hx Influenza Vaccination: No Hx Pneumococcal Vaccination: No - Home Medications Home Medications: Ambulatory Orders Medication Instructions Recorded Albuterol 0.083% [Albuterol 3 ml IH Q4 PRN 09/20/15 Sulfate 3 Ml] Fluticasone Nasal [Flonase] 2 spr NS DAILY 09/20/15 Gabapentin [Neurontin] 300 mg PO TID 09/20/15 Hydroxychloroquine Sulfate 200 mg PO BID 09/20/15 [Plaquenil] Meloxicam [Mobic] 15 mg PO DAILY 09/20/15 Methocarbamol [Robaxin] 500 mg PO TID #20 tab 10/19/15 oxyCODONE/Acetaminophen [Percocet 1 ea PO Q6H PRN #8 tab 07/28/16 5/325 mg Tab] Azithromycin [Z-Osito] 250 mg PO DAILY #6 tab 01/08/18 Ibuprofen [Motrin Tab] 600 mg PO Q6 #30 tab 01/08/18 Acetaminophen [Acetaminophen Extra 2 tab PO Q6 PRN #24 tablet 01/10/18 Strength] Ibuprofen [Motrin] 600 mg PO Q8 PRN #21 tab 01/10/18 Oseltamivir Cap [Tamiflu] 75 mg PO BID #9 cap 01/10/18 Methylprednisolone [Medrol Dose 4 mg PO ASDIR #21 mg 01/22/18 Pack (21 tabs)] Naproxen 500 mg PO BID PRN #20 tab 08/23/18 - Allergies Allergies/Adverse Reactions: Allergies Allergy/AdvReac Type Severity Reaction Status Date / Time cat dander Allergy ITCHING Verified 01/22/18 15:31 Review of Systems ROS Statement: Except As Marked, All Systems Reviewed And Found Negative Constitutional: Positive for: Weakness, Other (fatigue). Negative for: Fever Cardiovascular: Negative for: Chest Pain, Palpitations Respiratory: Negative for: Shortness of Breath Genitourinary Female: Positive for: Vaginal Bleeding. Negative for: Dysuria, Other (vaginal itchiness or irritation) Neurological: Positive for: Other (lightheadedness) Physical Exam - Reviewed Nursing Documentation Reviewed: Yes Vital Signs Reviewed: Yes - Physical Exam Appears: Positive for: No Acute Distress Head Exam: Positive for: ATRAUMATIC Skin: Positive for: Pallor Eye Exam: Positive for: Other (slightly pale conjunctivae) Neck: Positive for: Normal, Painless ROM Cardiovascular/Chest: Positive for: Regular Rate, Rhythm. Negative for: Murmur Respiratory: Positive for: Normal Breath Sounds. Negative for: Respiratory Distress Gastrointestinal/Abdominal: Positive for: Normal Exam, Soft. Negative for: Tenderness Pelvic Exam: Positive for: No Masses, Blood (Scant brown blood in the uterus, neg for clots), Other (cervical os is closed with no redness noted at the cervix. Patient tolerated pelvic exam well. Exam chaperoned by LAWRENCE Acosta). Negative for: Lesions, Mass, Tender W/Cervical Motion, Tender Adnexa (or masses), Tender Uterus Extremity: Positive for: Normal ROM, Capillary Refill (< 2 seconds bilaterally) Neurological/Psych: Positive for: Awake, Alert, Oriented (x3). Negative for: Motor/Sensory Deficits - Laboratory Results Result Diagrams: 12/27/18 11:45 12/27/18 11:45 Lab Results: PT 11.7 Seconds (9.8-13.1) 12/27/18 11:45 INR 1.0 12/27/18 11:45 Total Bilirubin 0.3 mg/dl (0.2-1.3) 12/27/18 11:45 AST 39 U/L (14-36) H D 12/27/18 11:45 ALT 44 U/L (9-52) 12/27/18 11:45 Alkaline Phosphatase 64 U/L (38-126) 12/27/18 11:45 Total Protein 7.9 G/DL (6.3-8.2) 12/27/18 11:45 Albumin 4.2 g/dL (3.5-5.0) 12/27/18 11:45 Globulin 3.7 gm/dL (2.2-3.9) 12/27/18 11:45 Albumin/Globulin Ratio 1.1 (1.0-2.1) 12/27/18 11:45 Urine Color Yellow (YELLOW) 12/27/18 11:45 Urine Clarity Slighty-cloudy (Clear) 12/27/18 11:45 Urine pH 6.0 (5.0-8.0) 12/27/18 11:45 Ur Specific [place] 1.015 (1.003-1.030) 12/27/18 11:45 Urine Protein Negative mg/dL (NEGATIVE) 12/27/18 11:45 Urine Glucose (UA) Neg mg/dL (NEGATIVE) 12/27/18 11:45 Urine Ketones Negative mg/dL (NEGATIVE) 12/27/18 11:45 Urine Blood Negative (NEGATIVE) 12/27/18 11:45 Urine Nitrate Negative (NEGATIVE) 12/27/18 11:45 Urine Bilirubin Negative (NEGATIVE) 12/27/18 11:45 Urine Urobilinogen 0.2-1.0 mg/dL (0.2-1.0) 12/27/18 11:45 Ur Leukocyte Esterase Neg Peter/uL (Negative) 12/27/18 11:45 Urine RBC (Auto) 3 /hpf (0-3) 12/27/18 11:45 Urine Microscopic WBC 4 /hpf (0-5) 12/27/18 11:45 Ur Squamous Epith Cells < 1 /hpf (0-5) 12/27/18 11:45 Urine Bacteria Rare (<OCC) 12/27/18 11:45 Urine POC: Negative - ECG O2 Sat by Pulse Oximetry: 100 (RA) Pulse Ox Interpretation: Normal Medical Decision Making Medical Decision Making: Time: 1029 Plan: -- Type and Screen -- CMP -- CBC with Differentials -- Urinalysis Time: 1239 Plan: -- Prothrombin Time -- Sodium Chloride IV 1000 mls/hr -- Naproxen 500 mg PO -- US Transvaginal -- Labs reviewed by me and demonstrate a hemoglobin of 8.2. Hemoglobin results compared to blood work done one week ago and shows no change. Time: 1247 US RESULTS HISTORY: abnormal vaginal bleeding COMPARISON: Pelvic ultrasonography 01/24/2016. TECHNIQUE: Transabdominal and transvaginal pelvic ultrasound was performed with longitudinal and transverse images submitted for interpretation. FINDINGS: UTERUS: Measures 12.0 x 5.9 x 5.3 cm. Uterus is normal in size with heterogeneous echotexture throughout the myometrium. There is a focal area of diminished echogenicity at the posterior corpus measuring 1.9 x 1.2 x 2.0 cm compatible with a small subserosal fibroid. An additional nearly identical hypoechoic lesion is seen at the midline fundus measuring 2.2 x 2.6 x 2.5 cm bridging both sub serosal and submucous spaces. ENDOMETRIUM: Measures 3.8 mm in diameter. Trace fluid is seen in the endometrial cavity potentially reflecting hemorrhage in this patient with history of spontaneous vaginal bleeding. CERVIX: There 1 or 2 small nabothian cysts seen related to the cervix with the cervix otherwise unremarkable. RIGHT OVARY: Measures 3.1 x 2.4 x 2.2 cm. No solid mass. Normal flow. A few follicles are seen scattered infrequently. LEFT OVARY: Measures to 4.7 x 3.7 x 2.6 cm. No solid mass. Normal flow. A simple cyst seen only on the transabdominal component of the exam measuring 2.7 x 2.0 x 2.0 cm potentially representing a dominant follicle. FREE FLUID: No significant free fluid noted. OTHER FINDINGS: None. IMPRESSION: 2.7 cm cyst left ovary may reflect dominant follicle. 2 uterine fibroids identified within an enlarged uterus with the uterus otherwise unremarkable. Trace fluid is seen within the endometrial cavity potentially reflecting he morrhage given patient's clinical history of abnormal vaginal bleeding. Time: 1427 -- On re-evaluation, patient reports of feeling better and is requesting to go home. Patient to be discharged with a diagnosis of abnormal uterine bleeding. Patient has an appointment to follow up with DEPARTMENT EDITOR on and encouraged to maintain appointment. Patient instructed to come back to the ER if bleeding is heavier or associated with increased abdominal cramping or dizziness. Case reviewed with Dr. Riley who agreed with plan. Scribe Attestation: Documented by Aiyana Brownlee, acting as a scribe VERO Nguyen. Provider Scribe Attestation: All medical record entries made by the Scribe were at my direction and personally dictated by me. I have reviewed the chart and agree that the record accurately reflects my personal performance of the history, physical exam, medical decision making, and the department course for this patient. I have also personally directed, reviewed, and agree with the discharge instructions and disposition. Disposition - Clinical Impression Clinical Impression: Abnormal uterine bleeding (AUB) - Patient ED Disposition Is Patient to be Admitted: No - Disposition [facility] Disposition: Routine/Home Disposition Time: 14:28 Condition: IMPROVED Additional Instructions: FOLLOW-UP WITH DEPARTMENT EDITOR ON THURSDAY SCHEDULED Instructions: Ovarian Cyst (DC), Uterine Fibroids (DC) Forms: [facility] ED School/Work Excuse Print Language: UPPER SORBIAN - POA Present On Arrival: None
[2018-12-27 16:06] VITALS: BP 130/86; PULSE 68; RESP 18
--- NOTE | 2018-12-29 14:11 | CARD ---
APPROVED REPORT Date of service: 12/27/2018 EKG Measurement Heart [id number] <Conclusion> Normal sinus rhythm Normal Electrocardiogram
== END 2018-12-27 15:05 | disposition home or self-care (01) ==
LOC: H.ER 09:33
DX: N93.9 Abnormal uterine and vaginal bleeding, unspecified (principal); I10 Essential (primary) hypertension; M32.9 Systemic lupus erythematosus, unspecified; M79.7 Fibromyalgia; D25.9 Leiomyoma of uterus, unspecified; N83.202 Unspecified ovarian cyst, left side
CPT/HCPCS: 76830; 80053; 81003; 85025; 85610; 86850; 86900; 93005; 99283; J7030